=== PATIENT | male | born 1990 | race Two or more races ===

== ENCOUNTER 2024-03-25 11:33 | Emergency (ER) | payer OTHER ==
[~2024-03-25] VITALS: Ht 177.8 cm; Wt 111.1 kg
[2024-03-25] MEDS ORDERED: COZAAR50 MG PO (12:27)
[2024-03-25] MEDS ORDERED: LIPITOR20 MG PO (12:28)
[2024-03-25] MEDS ORDERED: LIPITOR40 M1 PO (12:31)
[2024-03-25] MEDS ORDERED: COZAAR100 MG PO (12:31)
[2024-03-25] MEDS ORDERED: LIPOFEN150 MG PO (12:31)
[2024-03-25] MEDS ORDERED: HYDROCHLOROTHIA25 MG PO (12:32)
[2024-03-25] MEDS ORDERED: KETOROLAC TROMETHAMINE 60 MG VIAL IM ONE (13:00)
[2024-03-25] MEDS ORDERED: PEPCID AC20 MG PO (15:25)
== END 2024-03-25 15:32 | disposition home or self-care (01) ==
LOC: ER 11:35
DX: K63.89 Other specified diseases of intestine (principal); R10.9 Unspecified abdominal pain